=== PATIENT | female | born 1975 | race Two or more races ===

== ENCOUNTER 2023-04-07 05:55 | Inpatient (IN) | payer OTHER ==
[2023-04-02 12:39] LABS: Eosinophils # (auto) 0.1 10 ^3/uL (0-0.8); Monocytes # (auto) 0.6 10 ^3/uL (0-1.3); White Blood Cell 7.6 10^3/uL (4.4-10.8)
[2023-04-02 12:41] LABS: Basophils # (auto) 0 10 ^3/uL (0-0.2); Basophils % (auto) 0.5 % (0.0-2.0); Eosinophils % (auto) 0.8 % (0.0-7.0); Hematocrit 36.9 % (36.0-46.0); Hemoglobin 11.8 g/dL (12.2-16.2); Lymphocytes # (auto) 2.6 10 ^3/uL (0.4-5.4); Lymphocytes % (auto) 33.9 % (10.0-50.0); Mean Corpuscular Hemoglobin 25.6 pg (28.0-32.0); Monocytes % (auto) 8.5 % (0.0-12.0); Neutrophils # (auto) 4.3 10 ^3/uL (1.6-8.6); Neutrophils % (auto) 56.3 % (37.0-80.0); Red Blood Cells 4.61 10^6/uL (4.0-5.20); Red Cell Distribution Width 14.6 % (11.8-14.3)
[2023-04-02 12:51] LABS: INR 0.97 (0.9-1.15); Partial Thromboplastin Time 26.5 SEC (24.5-34.5); Prothrombin Time 10.2 sec (9.3-11.8)
[2023-04-02 13:04] LABS: Urine Bacteria FEW /hpf (None Seen); Urine Blood Negative /uL (Negative); Urine Clarity Clear (Clear); Urine Color Yellow (Yellow); Urine Protein, UAD TRACE (Negative); Urine Specific Gravity 1.016 (1.001-1.035); Urine Urobilinogen Normal (Negative); Urine WBC <1 /hpf (0 - 5)
[2023-04-02 13:22] LABS: Albumin 4.6 g/dL (3.2-4.8); Alkaline Phosphatase 64 U/L (46-116); Anion Gap 5 (5-15); Aspartate Aminotransferase 11 U/L (13-40); BUN/Creatinine Ratio 7.8 (10.0-20.0); Blood Urea Nitrogen 8 mg/dL (9-23); Calcium 9.3 mg/dL (8.7-10.4); Carbon Dioxide 26 mmol/L (20-30); Chloride 105 mmol/L (98-107); Glucose 94 mg/dL (74-106); Potassium 4.5 mmol/L (3.5-5.1); Sodium 136 mmol/L (136-145)
[2023-04-02 13:23] LABS: Bilirubin, Total 0.5 mg/dL (0.2-1.0)
[2023-04-02 13:30] LABS: Alanine Aminotransferase < 9 U/L (7-40)
[~2023-04-07] VITALS: Ht 165.1 cm; Wt 109.8 kg
[2023-04-07] MEDS ORDERED: ceFAZolin 2 GM/D5W100ml 100 ML IV ONE (06:55)
[2023-04-07] MEDS ORDERED: FAMOTIDINE (10MG/ML) 2ML VL IV ONE (06:58)
[2023-04-07] MEDS ORDERED: SUCCINYLCHOLINE CHLORIDE 20 MG/ML 10ML VIAL IV ONE (06:59)
[2023-04-07] MEDS ORDERED: HYDROmorphone HCL 2 MG/ML VL/or syr ONE (07:24)
[2023-04-07] MEDS ORDERED: MIDAZOLAM HCL 2MG/2ML 2ml VIAL (1mg/ml) ONE (07:24)
[2023-04-07] MEDS ORDERED: fentaNYL CITRATE 100 MCG/2 ML VL ONE ×2 (07:24→08:48)
[2023-04-07] MEDS ORDERED: SUGAMMADEX 200mg/2ml Vial (100MG/ML) IV ONE (07:24)
[2023-04-07] MEDS ORDERED: PROPOFOL 10 MG/ML 20 ML IV ONE (07:25)
[2023-04-07] MEDS ORDERED: ePHEDrine SULFATE 50 MG/ML AMP ONE (07:25)
[2023-04-07] MEDS ORDERED: ROCURONIUM 10MG/ML 10ML VIAL IV ONE (07:25)
[2023-04-07] MEDS ORDERED: GLYCOPYRROLATE 0.2 MG/ML 1ML VIAL ONE (07:25)
[2023-04-07] MEDS ORDERED: DexAMETHasone SOD PHOS 10MG/1ML VIAL INJ ONE (07:25)
[2023-04-07] MEDS ORDERED: KETOROLAC TROMETH 30 MG/ML 1ML VIAL ONE (07:25)
[2023-04-07] MEDS ORDERED: LIDOCAINE 2% (LOCAL ANESTH.) PF 5ml SDV ONE (07:25)
[2023-04-07] MEDS ORDERED: LIDOCAINE W/ EPINEPHRINE 2% INJ 20ML VIAL ONE (07:27)
[2023-04-07] MEDS ORDERED: BUPIVACAINE 0.5% P/F INJ 10 ML VIAL ONE (07:27)
[2023-04-07 10:54] VITALS: O2SAT 100
[2023-04-07] MEDS ORDERED: ONDANSETRON HCL 4 MG/2 ML VIAL IV PRN (11:00)
[2023-04-07] MEDS: HYDROmorphone HCL 2 MG/ML VL/or syr IV PRN ×6 (12:02→22:25)
[2023-04-07] MEDS ORDERED: hydrALAZINE HCL 20 MG/ML VL IV PRN (12:15)
[2023-04-07] MEDS ORDERED: ceFAZolin 1GM/50ML 50 ML IV SCH (14:00)
[2023-04-07] MEDS: D5W/SOD CHL 0.45%/KCL 20MEQ 1,000 ML IV SCH ×2 (15:28→18:41)
[2023-04-07] MEDS: metroNIDAZOLE 500MG/100ML 100 ML IV SCH ×2 (15:28→21:57)
[2023-04-07 16:23] VITALS: BP 136/73; PULSE 80; RESP 12
[2023-04-07 17:00] VITALS: BP 136/75; PULSE 89; RESP 18; TEMP 98.1; O2SAT 97
[2023-04-07] MEDS: ONDANSETRON HCL 4 MG/2 ML VIAL IV PRN ×2 (17:18→22:25)
[2023-04-07] MEDS: ceFAZolin 1GM/50ML 50 ML IV SCH (17:19)
[2023-04-07 20:00] VITALS: RESP 20
[2023-04-07 22:00] VITALS: BP 163/81; PULSE 78; RESP 18; TEMP 98.4; O2SAT 96
[2023-04-08] VITALS (7 sets, daily range): BP systolic 154–168; BP diastolic 81–102; PULSE 77–89; RESP 16–85; TEMP 97.6–99.6; O2SAT 93–100
[2023-04-08] MEDS: ceFAZolin 1GM/50ML 50 ML IV SCH ×3 (00:27→18:11)
[2023-04-08] MEDS: ONDANSETRON HCL 4 MG/2 ML VIAL IV PRN ×5 (02:38→22:27)
[2023-04-08] MEDS: D5W/SOD CHL 0.45%/KCL 20MEQ 1,000 ML IV SCH ×4 (03:10→21:35)
[2023-04-08] MEDS: HYDROmorphone HCL 2 MG/ML VL/or syr IV PRN ×5 (04:18→22:27)
[2023-04-08 05:05] LABS: Basophils # (auto) 0 10 ^3/uL (0-0.2); Basophils % (auto) 0.1 % (0.0-2.0); Eosinophils # (auto) 0 10 ^3/uL (0-0.8); Hemoglobin 9.7 g/dL (12.2-16.2); Lymphocytes # (auto) 1.5 10 ^3/uL (0.4-5.4); Monocytes # (auto) 0.9 10 ^3/uL (0-1.3)
[2023-04-08 05:09] LABS: Hematocrit 30.5 % (36.0-46.0); Lymphocytes % (auto) 13.7 % (10.0-50.0); Mean Corpuscular Hemoglobin 25.6 pg (28.0-32.0); Mean Corpuscular Hgb Conc. 31.9 g/dL (32.0-36.0); Mean Corpuscular Volume 80.2 fL (80.0-100.0); Monocytes % (auto) 8.3 % (0.0-12.0); Neutrophils # (auto) 8.7 10 ^3/uL (1.6-8.6); Neutrophils % (auto) 77.9 % (37.0-80.0); Red Blood Cells 3.81 10^6/uL (4.0-5.20); Red Cell Distribution Width 14.6 % (11.8-14.3); White Blood Cell 11.1 10^3/uL (4.4-10.8)
[2023-04-08 05:21] LABS: Alkaline Phosphatase 48 U/L (46-116); Anion Gap 7 (5-15); Blood Urea Nitrogen 6 mg/dL (9-23); Calcium 8.2 mg/dL (8.7-10.4); Carbon Dioxide 23 mmol/L (20-30); Chloride 105 mmol/L (98-107); Glucose 139 mg/dL (74-106); Potassium 3.8 mmol/L (3.5-5.1); Sodium 135 mmol/L (136-145)
[2023-04-08 05:22] LABS: Albumin 3.6 g/dL (3.2-4.8); Aspartate Aminotransferase 14 U/L (13-40); Bilirubin, Total 0.5 mg/dL (0.2-1.0); Total Protein 6.3 g/dL (5.7-8.2)
[2023-04-08 05:37] LABS: Alanine Aminotransferase < 9 U/L (7-40)
[2023-04-08] MEDS: metroNIDAZOLE 500MG/100ML 100 ML IV SCH ×3 (05:55→22:26)
[2023-04-08 07:57] LABS: % Iron Saturation 5.7 % (15-50)
[2023-04-08 08:52] LABS: Hepatitis B Surface Antigen Negative (Negative)
[2023-04-08 09:13] LABS: Hepatitis C Antibody Negative (Negative)
[2023-04-08] MEDS ORDERED: ERGOCALCIFEROL 50,000 UNIT(1.25MG) CAP PO SCH ×2 (10:15→14:30)
[2023-04-08] MEDS ORDERED: IRON SUCROSE COMPLEX 100 ML IV SCH (12:00)
[2023-04-08] MEDS: SODIUM FERR GLUC 125 MG in NS 100 ML IV SCH (12:20)
[2023-04-08] MEDS: PANTOPRAZOLE 40 MG/10 ML VIAL INJ IV SCH (12:38)
[2023-04-08] MEDS ORDERED: CALCIUM GLUC 1,000mg/50ml-NS 50 ML IV ONE (14:30)
[2023-04-08 14:57] LABS: Triglycerides 65 mg/dL (< 150)
[2023-04-08 14:58] LABS: LDL Cholesterol 38 mg/dL (< 100)
[2023-04-08 14:59] LABS: Cholesterol 86 mg/dL (< 200); HDL Cholesterol 40 mg/dL (40-59)
[2023-04-08] MEDS ORDERED: CYANOCOBALAMIN (B-12) 1000 MCG/1 ML VIAL IM ONE (17:30)
[2023-04-08] MEDS: amLODIPine BESYLATE 5 MG TAB PO SCH (18:12)
[2023-04-08] MEDS ORDERED: CYANOCOBALAMIN (B-12) 1000 MCG/1 ML VIAL ONE (18:18)
[2023-04-09] MEDS: ceFAZolin 1GM/50ML 50 ML IV SCH ×3 (00:24→18:02)
[2023-04-09 05:00] VITALS: BP 132/60; PULSE 105; RESP 19; TEMP 99; O2SAT 93
[2023-04-09] MEDS: metroNIDAZOLE 500MG/100ML 100 ML IV SCH ×3 (05:40→21:20)
[2023-04-09] MEDS: ONDANSETRON HCL 4 MG/2 ML VIAL IV PRN (05:49)
[2023-04-09] MEDS: HYDROmorphone HCL 2 MG/ML VL/or syr IV PRN ×3 (05:49→22:27)
[2023-04-09 06:35] LABS: Basophils # (auto) 0 10 ^3/uL (0-0.2); Basophils % (auto) 0.3 % (0.0-2.0); Eosinophils # (auto) 0 10 ^3/uL (0-0.8); Eosinophils % (auto) 0.1 % (0.0-7.0); Hematocrit 31.3 % (36.0-46.0); Lymphocytes # (auto) 1.7 10 ^3/uL (0.4-5.4); Lymphocytes % (auto) 14.5 % (10.0-50.0); Mean Corpuscular Hemoglobin 25.2 pg (28.0-32.0); Mean Corpuscular Hgb Conc. 31.8 g/dL (32.0-36.0); Mean Corpuscular Volume 79.2 fL (80.0-100.0); Monocytes % (auto) 8.1 % (0.0-12.0); Neutrophils # (auto) 9.3 10 ^3/uL (1.6-8.6); Red Blood Cells 3.95 10^6/uL (4.0-5.20); Red Cell Distribution Width 14.8 % (11.8-14.3)
[2023-04-09 06:54] LABS: Albumin 3.7 g/dL (3.2-4.8); Alkaline Phosphatase 51 U/L (46-116); Anion Gap 9 (5-15); Aspartate Aminotransferase 15 U/L (13-40); Calcium 8.2 mg/dL (8.7-10.4); Carbon Dioxide 21 mmol/L (20-30); Chloride 108 mmol/L (98-107); Glucose 117 mg/dL (74-106); Potassium 3.9 mmol/L (3.5-5.1); Sodium 138 mmol/L (136-145); Total Protein 6.4 g/dL (5.7-8.2)
[2023-04-09 07:02] LABS: Alanine Aminotransferase < 9 U/L (7-40); BUN/Creatinine Ratio 5.7 (10.0-20.0); Bilirubin, Total 0.5 mg/dL (0.2-1.0); Blood Urea Nitrogen < 5 mg/dL (9-23)
[2023-04-09 08:43] VITALS: BP 143/81; PULSE 94; RESP 16; TEMP 98; O2SAT 95
[2023-04-09] MEDS ORDERED: CALCIUM GLUC 1,000mg/50ml-NS 50 ML IV ONE (09:00)
[2023-04-09] MEDS: CYANOCOBALAMIN 500 MCG TAB PO SCH (10:00)
[2023-04-09] MEDS: amLODIPine BESYLATE 5 MG TAB PO SCH (10:00)
[2023-04-09] MEDS: PANTOPRAZOLE 40 MG/10 ML VIAL INJ IV SCH (11:08)
[2023-04-09] MEDS: SODIUM FERR GLUC 125 MG in NS 100 ML IV SCH (12:00)
[2023-04-09] MEDS: D5W/SOD CHL 0.45%/KCL 20MEQ 1,000 ML IV SCH ×2 (12:30→20:50)
[2023-04-09 12:31] VITALS: BP 161/89; PULSE 89; RESP 17; TEMP 98.9; O2SAT 97
[2023-04-09] MEDS: CYANOCOBALAMIN (B-12) 1000 MCG/1 ML VIAL IM SCH (13:24)
[2023-04-09 16:41] VITALS: BP 151/83; PULSE 90; RESP 18; TEMP 98.9; O2SAT 96
[2023-04-09 22:00] VITALS: BP 152/82; PULSE 75; RESP 19; TEMP 99.6; O2SAT 97
[2023-04-10] MEDS: ceFAZolin 1GM/50ML 50 ML IV SCH ×3 (01:31→18:00)
[2023-04-10] MEDS: HYDROmorphone HCL 2 MG/ML VL/or syr IV PRN ×4 (03:52→22:03)
[2023-04-10 05:00] VITALS: BP 145/73; PULSE 70; RESP 16; TEMP 98.5; O2SAT 93
[2023-04-10] MEDS: metroNIDAZOLE 500MG/100ML 100 ML IV SCH ×3 (05:37→22:02)
[2023-04-10 06:53] LABS: Basophils # (auto) 0.1 10 ^3/uL (0-0.2); Basophils % (auto) 0.6 % (0.0-2.0); Eosinophils # (auto) 0 10 ^3/uL (0-0.8); Eosinophils % (auto) 0.4 % (0.0-7.0); Hematocrit 31.8 % (36.0-46.0); Hemoglobin 10.1 g/dL (12.2-16.2); Lymphocytes # (auto) 2.1 10 ^3/uL (0.4-5.4); Lymphocytes % (auto) 20.6 % (10.0-50.0); Mean Corpuscular Hemoglobin 25.5 pg (28.0-32.0); Mean Corpuscular Hgb Conc. 31.7 g/dL (32.0-36.0); Mean Corpuscular Volume 80.2 fL (80.0-100.0); Monocytes # (auto) 0.8 10 ^3/uL (0-1.3); Monocytes % (auto) 8.3 % (0.0-12.0); Neutrophils % (auto) 70.1 % (37.0-80.0); Red Blood Cells 3.97 10^6/uL (4.0-5.20)
[2023-04-10 07:55] LABS: Alanine Aminotransferase < 9 U/L (7-40); Albumin 3.5 g/dL (3.2-4.8); Alkaline Phosphatase 48 U/L (46-116); Anion Gap 12 (5-15); Aspartate Aminotransferase 12 U/L (13-40); BUN/Creatinine Ratio 8.8 (10.0-20.0); Bilirubin, Total 0.5 mg/dL (0.2-1.0); Blood Urea Nitrogen 7 mg/dL (9-23); Calcium 8.6 mg/dL (8.5-10.1); Carbon Dioxide 21 mmol/L (20-30); Chloride 108 mmol/L (98-107); Glucose 86 mg/dL (74-106); Potassium 3.9 mmol/L (3.5-5.1); Sodium 141 mmol/L (136-145)
[2023-04-10] MEDS: D5W/SOD CHL 0.45%/KCL 20MEQ 1,000 ML IV SCH ×3 (08:00→21:50)
[2023-04-10] MEDS: CYANOCOBALAMIN 500 MCG TAB PO SCH (08:48)
[2023-04-10] MEDS: CYANOCOBALAMIN (B-12) 1000 MCG/1 ML VIAL IM SCH (08:58)
[2023-04-10] MEDS: PANTOPRAZOLE 40 MG/10 ML VIAL INJ IV SCH (08:58)
[2023-04-10 09:00] VITALS: BP 141/80; PULSE 79; RESP 16; TEMP 98.7; O2SAT 95
[2023-04-10] MEDS: amLODIPine BESYLATE 5 MG TAB PO SCH (09:00)
[2023-04-10] MEDS: SODIUM FERR GLUC 125 MG in NS 100 ML IV SCH (12:00)
[2023-04-10 13:00] VITALS: BP 160/79; PULSE 81; RESP 18; TEMP 97.5; O2SAT 99
[2023-04-10 17:00] VITALS: BP 139/65; PULSE 71; RESP 18; TEMP 98.7; O2SAT 96
[2023-04-10 22:00] VITALS: BP 153/76; PULSE 74; RESP 17; TEMP 99.2; O2SAT 98
[2023-04-11] MEDS: ceFAZolin 1GM/50ML 50 ML IV SCH ×3 (02:00→17:26)
[2023-04-11 05:00] VITALS: BP 156/75; PULSE 64; RESP 18; TEMP 99.2; O2SAT 96
[2023-04-11] MEDS: metroNIDAZOLE 500MG/100ML 100 ML IV SCH ×2 (05:07→13:58)
[2023-04-11] MEDS: HYDROmorphone HCL 2 MG/ML VL/or syr IV PRN ×3 (05:07→23:11)
[2023-04-11 07:11] LABS: Basophils # (auto) 0 10 ^3/uL (0-0.2); Basophils % (auto) 0.5 % (0.0-2.0); Eosinophils # (auto) 0.1 10 ^3/uL (0-0.8); Lymphocytes # (auto) 1.9 10 ^3/uL (0.4-5.4); Monocytes # (auto) 0.8 10 ^3/uL (0-1.3); Nucleated Red Blood Cells % 0.1 %
[2023-04-11 07:13] LABS: Eosinophils % (auto) 1.5 % (0.0-7.0); Hematocrit 30.6 % (36.0-46.0); Hemoglobin 9.8 g/dL (12.2-16.2); Lymphocytes % (auto) 22.8 % (10.0-50.0); Mean Corpuscular Hemoglobin 25.7 pg (28.0-32.0); Mean Corpuscular Hgb Conc. 32.1 g/dL (32.0-36.0); Mean Corpuscular Volume 79.9 fL (80.0-100.0); Monocytes % (auto) 9.4 % (0.0-12.0); Neutrophils # (auto) 5.6 10 ^3/uL (1.6-8.6); Neutrophils % (auto) 65.8 % (37.0-80.0); Red Blood Cells 3.83 10^6/uL (4.0-5.20); Red Cell Distribution Width 14.8 % (11.8-14.3); White Blood Cell 8.5 10^3/uL (4.4-10.8)
[2023-04-11] MEDS: D5W/SOD CHL 0.45%/KCL 20MEQ 1,000 ML IV SCH ×2 (08:00→13:58)
[2023-04-11 08:52] LABS: Alkaline Phosphatase 47 U/L (46-116); Anion Gap 9 (5-15); Aspartate Aminotransferase 11 U/L (13-40); BUN/Creatinine Ratio 7.6 (10.0-20.0); Blood Urea Nitrogen 6 mg/dL (9-23); Calcium 8.5 mg/dL (8.7-10.4); Carbon Dioxide 21 mmol/L (20-30); Chloride 107 mmol/L (98-107); Glucose 90 mg/dL (74-106); Potassium 3.6 mmol/L (3.5-5.1); Sodium 137 mmol/L (136-145)
[2023-04-11 08:53] LABS: Albumin 3.6 g/dL (3.2-4.8)
[2023-04-11 08:54] LABS: Bilirubin, Total 0.5 mg/dL (0.2-1.0); Total Protein 6.3 g/dL (5.7-8.2)
[2023-04-11] MEDS: CYANOCOBALAMIN (B-12) 1000 MCG/1 ML VIAL IM SCH (08:57)
[2023-04-11] MEDS: CYANOCOBALAMIN 500 MCG TAB PO SCH (08:58)
[2023-04-11] MEDS: PANTOPRAZOLE 40 MG/10 ML VIAL INJ IV SCH (08:58)
[2023-04-11] MEDS: amLODIPine BESYLATE 5 MG TAB PO SCH (08:58)
[2023-04-11 09:00] VITALS: BP 158/89; PULSE 68; RESP 18; TEMP 98.3; O2SAT 98
[2023-04-11 09:10] LABS: Alanine Aminotransferase < 9 U/L (7-40)
[2023-04-11] MEDS: SODIUM FERR GLUC 125 MG in NS 100 ML IV SCH (12:00)
[2023-04-11 13:00] VITALS: BP 147/93; PULSE 98; RESP 20; TEMP 98.6; O2SAT 95
[2023-04-11 17:00] VITALS: BP 151/86; PULSE 101; RESP 18; TEMP 98.6; O2SAT 97
[2023-04-11] MEDS ORDERED: CALCIUM GLUC 1,000mg/50ml-NS 50 ML IV ONE (21:45)
[2023-04-11] MEDS ORDERED: ACETAMINOPHEN/CODEINE#3 (300/30mg) TAB PO PRN (21:45)
[2023-04-11] MEDS ORDERED: IBUPROFEN 400 MG TAB PO PRN (21:45)
[2023-04-11 23:08] VITALS: BP 141/73; PULSE 87; RESP 17; TEMP 98.6; O2SAT 99
[2023-04-12] MEDS: ceFAZolin 1GM/50ML 50 ML IV SCH ×2 (01:27→09:15)
[2023-04-12 05:16] VITALS: BP 142/64; PULSE 63; RESP 18; TEMP 98.3; O2SAT 99
[2023-04-12 06:50] LABS: Basophils # (auto) 0 10 ^3/uL (0-0.2); Eosinophils # (auto) 0.2 10 ^3/uL (0-0.8); Hemoglobin 10.3 g/dL (12.2-16.2)
[2023-04-12 06:52] LABS: Basophils % (auto) 0.5 % (0.0-2.0); Eosinophils % (auto) 2.4 % (0.0-7.0); Hematocrit 32.3 % (36.0-46.0); Lymphocytes % (auto) 27.3 % (10.0-50.0); Mean Corpuscular Hemoglobin 25.4 pg (28.0-32.0); Mean Corpuscular Volume 79.3 fL (80.0-100.0); Monocytes # (auto) 0.8 10 ^3/uL (0-1.3); Monocytes % (auto) 10.7 % (0.0-12.0); Neutrophils # (auto) 4.4 10 ^3/uL (1.6-8.6); Neutrophils % (auto) 59.1 % (37.0-80.0); Nucleated Red Blood Cells % 0.1 %; Red Blood Cells 4.07 10^6/uL (4.0-5.20); Red Cell Distribution Width 14.6 % (11.8-14.3); White Blood Cell 7.4 10^3/uL (4.4-10.8)
[2023-04-12 07:03] LABS: Albumin 3.7 g/dL (3.2-4.8); Alkaline Phosphatase 50 U/L (46-116); Anion Gap 8 (5-15); Aspartate Aminotransferase 12 U/L (13-40); BUN/Creatinine Ratio 7.8 (10.0-20.0); Blood Urea Nitrogen 6 mg/dL (9-23); Calcium 9.1 mg/dL (8.5-10.1); Carbon Dioxide 24 mmol/L (20-30); Chloride 107 mmol/L (98-107); Glucose 88 mg/dL (74-106); Potassium 3.5 mmol/L (3.5-5.1); Sodium 139 mmol/L (136-145)
[2023-04-12 07:04] LABS: Bilirubin, Total 0.4 mg/dL (0.2-1.0); Total Protein 6.4 g/dL (5.7-8.2)
[2023-04-12 07:12] LABS: CRP High Sensitivity 3.06 mg/dL (<1.0)
[2023-04-12 07:13] LABS: Alanine Aminotransferase < 9 U/L (7-40)
[2023-04-12 09:00] VITALS: BP 146/93; PULSE 87; RESP 20; TEMP 97.7; O2SAT 98
[2023-04-12] MEDS: CYANOCOBALAMIN 500 MCG TAB PO SCH (09:13)
[2023-04-12] MEDS: amLODIPine BESYLATE 5 MG TAB PO SCH (09:14)
[2023-04-12] MEDS: PANTOPRAZOLE 40 MG/10 ML VIAL INJ IV SCH (09:14)
[2023-04-12] MEDS: CYANOCOBALAMIN (B-12) 1000 MCG/1 ML VIAL IM SCH (09:14)
[2023-04-12] MEDS ORDERED: AML5T PO (10:37)
[2023-04-12] MEDS ORDERED: IBUP1TAB4 PO (10:37)
[2023-04-12] MEDS ORDERED: CYAN500T3 PO (10:37)
[2023-04-12] MEDS ORDERED: FER325T PO (10:37)
[2023-04-12] MEDS ORDERED: ERGO1CAP23 PO (10:37)
[2023-04-12] MEDS: SODIUM FERR GLUC 125 MG in NS 100 ML IV SCH (12:43)
== END 2023-04-12 14:55 | disposition home or self-care (01) | DRG 330 ==
LOC: SUR 05:55 → OVERFLOW 12:07 → WEST WING 15:05
PROVIDERS: ADMIT Internal Medicine; ATTEND Internal Medicine
PROC: 0D1L0Z4 Bypass Transverse Colon to Cutaneous, Open Approach (ICD-10-PCS; 2023-04-07)
PROC: 0DTF0ZZ Resection of Right Large Intestine, Open Approach (ICD-10-PCS; principal; 2023-04-07 08:21)
DX: D12.6 Benign neoplasm of colon, unspecified (principal); D62 Acute posthemorrhagic anemia; E87.1 Hypo-osmolality and hyponatremia; Z68.41 Body mass index [BMI] 40.0-44.9, adult; I10 Essential (primary) hypertension; E83.51 Hypocalcemia; E53.8 Deficiency of other specified B group vitamins; E66.01 Morbid (severe) obesity due to excess calories
CPT/HCPCS: 36415; 71045; 80053; 80061; 81001; 81025; 82306; 82607; 83540; 83550; 84443; 85025; 85610; 85730; 86141; 86803; 86850; 86900; 86901; 87340; 97163; C9113; G0378; J0330; J1100; J1756; J1885; J2001; J2250; J2405; J2704; J3490

== ENCOUNTER → 2023-07-02 | Outpatient (CLI) | payer OTHER ==
[~2023-07-02] MED LIST: AML5T PO; CYAN500T3 PO; ERGO1CAP23 PO; FER325T PO; IBUP1TAB4 PO
== END | disposition home or self-care (01) ==
LOC: LAB 12:00
PROVIDERS: ATTEND Obstetrics & Gynecology
DX: N93.9 Abnormal uterine and vaginal bleeding, unspecified (principal)

== ENCOUNTER 2023-11-05 06:20 | Day surgery (SDC) | payer OTHER ==
[2023-11-02 10:27] LABS: Basophils # (auto) 0.1 10 ^3/uL (0-0.2); Basophils % (auto) 0.8 % (0.0-2.0); Eosinophils # (auto) 0.1 10 ^3/uL (0-0.8); Eosinophils % (auto) 1.1 % (0.0-7.0); Hemoglobin 12.9 g/dL (12.2-16.2); Lymphocytes # (auto) 2.3 10 ^3/uL (0.4-5.4); Mean Corpuscular Hemoglobin 27.5 pg (28.0-32.0); Mean Corpuscular Hgb Conc. 33.1 g/dL (32.0-36.0); Monocytes # (auto) 0.6 10 ^3/uL (0-1.3); Neutrophils # (auto) 3.5 10 ^3/uL (1.6-8.6); Neutrophils % (auto) 54.1 % (37.0-80.0); Nucleated Red Blood Cells % 0.1 %; Red Cell Distribution Width 14.4 % (11.8-14.3); White Blood Cell 6.5 10^3/uL (4.4-10.8)
[2023-11-02 10:28] LABS: Urine Bacteria FEW /hpf (None Seen); Urine Blood Negative /uL (Negative); Urine Clarity Clear (Clear); Urine Color Light-Yellow (Yellow); Urine Protein, UAD TRACE (Negative); Urine Specific Gravity 1.023 (1.001-1.035); Urine Urobilinogen Normal (Negative); Urine WBC 3 /hpf (0 - 5); Urine pH 5.5 (5.0-9.0)
[2023-11-02 10:42] LABS: INR 0.98 (0.9-1.15); Prothrombin Time 10.4 sec (9.3-11.8)
[2023-11-02 11:20] LABS: Alanine Aminotransferase 14 U/L (7-40); Alkaline Phosphatase 65 U/L (46-116); Anion Gap 6 (5-15); BUN/Creatinine Ratio 8.7 (10.0-20.0); Blood Urea Nitrogen 8 mg/dL (9-23); Calcium 9.9 mg/dL (8.7-10.4); Carbon Dioxide 24 mmol/L (20-30); Chloride 107 mmol/L (98-107); Glucose 97 mg/dL (74-106); Sodium 137 mmol/L (136-145)
[2023-11-02 11:21] LABS: Albumin 4.5 g/dL (3.2-4.8); Aspartate Aminotransferase 9 U/L (13-40); Bilirubin, Total 0.7 mg/dL (0.2-1.0); Total Protein 7.9 g/dL (5.7-8.2)
[~2023-11-05] VITALS: Ht 165.1 cm; Wt 96.2 kg
[~2023-11-05 06:20] MED LIST changes: -IBUP1TAB4 PO
[2023-11-05] MEDS ORDERED: ZOFR4T PO (07:18)
[2023-11-05] MEDS ORDERED: HYDR-4902 PO (07:18)
[2023-11-05] MEDS ORDERED: ceFAZolin 2 GM/D5W50ml 50 ML IV ONE (07:27)
[2023-11-05] MEDS ORDERED: LIDOCAINE 1% INJ PF 5ML AMP ONE (07:43)
[2023-11-05] MEDS ORDERED: GLYCOPYRROLATE 0.2 MG/ML 1ML VIAL ONE (07:43)
[2023-11-05] MEDS ORDERED: ONDANSETRON HCL 4 MG/2 ML VIAL ONE (07:43)
[2023-11-05] MEDS ORDERED: PROPOFOL 10 MG/ML 20 ML IV ONE ×3 (07:43→08:57)
[2023-11-05] MEDS ORDERED: DexAMETHasone SOD PHOS 10MG/1ML VIAL INJ ONE (07:43)
[2023-11-05] MEDS ORDERED: KETOROLAC TROMETH 30 MG/ML 1ML VIAL ONE (07:43)
[2023-11-05] MEDS ORDERED: fentaNYL CITRATE 100 MCG/2 ML VL ONE (07:44)
[2023-11-05] MEDS ORDERED: KETAMINE 50mg/ML 1ml syringe ONE (07:44)
[2023-11-05] MEDS: CELECOXIB 100 MG CAP PO ONE (08:00)
[2023-11-05] MEDS: GABAPENTIN 400 MG CAP PO ONE (08:00)
[2023-11-05] MEDS: ACETAMINOPHEN IV 1000 MG/100ML (10MG/ML) IV ONE (08:00)
[2023-11-05] MEDS ORDERED: CELECOXIB 100 MG CAP PO ONE (08:15)
[2023-11-05] MEDS ORDERED: ACETAMINOPHEN IV 1000 MG/100ML (10MG/ML) IV ONE (08:15)
[2023-11-05] MEDS ORDERED: GABAPENTIN 400 MG CAP PO ONE (08:15)
[2023-11-05 09:08] VITALS: PULSE 91; RESP 17; O2SAT 98
[2023-11-05] MEDS ORDERED: HYDROmorphone HCL 2 MG/ML VL/or syr IV PRN (09:15)
[2023-11-05] MEDS ORDERED: ONDANSETRON HCL 4 MG/2 ML VIAL IV PRN ×2 (09:15)
[2023-11-05] MEDS ORDERED: NALOXONE HCL 0.4 MG/ML VIAL IV PRN (09:15)
[2023-11-05] MEDS ORDERED: ePHEDrine SULFATE 50 MG/ML AMP IV PRN (09:15)
[2023-11-05] MEDS ORDERED: LACTATED RINGER'S 1,000 ML IV SCH (09:15)
[2023-11-05] MEDS ORDERED: hydrALAZINE HCL 20 MG/ML VL IV PRN (09:15)
[2023-11-05] MEDS ORDERED: FLUMAZENIL 0.1 MG/ML INJ 10ML MDV IV PRN (09:15)
[2023-11-05] MEDS ORDERED: oxyCODONE HCL 5MG TAB PO PRN (09:15)
[2023-11-05] MEDS ORDERED: fentaNYL CITRATE 100 MCG/2 ML VL IV PRN (09:15)
[2023-11-05] MEDS ORDERED: HYDROmorphone HCL 2 MG/ML VL/or syr ONE (09:33)
[2023-11-05] MEDS: HYDROmorphone HCL 2 MG/ML VL/or syr IV ONE ×2 (09:35→09:45)
[2023-11-05 10:00] VITALS: BP 149/89; PULSE 59; RESP 14; O2SAT 11
== END 2023-11-05 10:17 | disposition home or self-care (01) ==
LOC: SUR 06:20
PROVIDERS: ATTEND Obstetrics & Gynecology
DX: N93.9 Abnormal uterine and vaginal bleeding, unspecified (principal); N92.0 Excessive and frequent menstruation with regular cycle; I10 Essential (primary) hypertension; E66.01 Morbid (severe) obesity due to excess calories; Z68.35 Body mass index [BMI] 35.0-35.9, adult; Z79.899 Other long term (current) drug therapy; Z86.2 Personal history of diseases of the blood and blood-forming organs and certain disorders involving the immune mechanism; Z87.09 Personal history of other diseases of the respiratory system; Z98.890 Other specified postprocedural states; Z84.89 Family history of other specified conditions
CPT/HCPCS: 36415; 58563; 80053; 81001; 81025; 84702; 85025; 85610; 85730; 86850; 86900; 86901; 88305; J0131; J0690; J1100; J1170; J1885; J2405; J2704; J7030

== ENCOUNTER → 2023-12-07 | Outpatient (CLI) | payer OTHER ==
[~2023-12-07] MED LIST changes: +HYDR-4902 PO; +ZOFR4T PO
[2023-12-07 12:10] LABS: Follicle Stimulating Hormone 4.07 IU/L (SEE BELOW)
[2023-12-07 12:11] LABS: Leuteinizing Hormone 3.5 IU/L
== END | disposition home or self-care (01) ==
LOC: LAB 11:22
PROVIDERS: ATTEND Obstetrics & Gynecology
DX: N95.1 Menopausal and female climacteric states (principal)
CPT/HCPCS: 36415; 82670; 83001; 83002; 84403; 84702

== ENCOUNTER → 2024-01-27 | Outpatient (CLI) | payer OTHER ==
[2024-01-27 09:20] LABS: Urine Bacteria FEW /hpf (None Seen); Urine Blood Negative /uL (Negative); Urine Clarity Turbid (Clear); Urine Color Light-Yellow (Yellow); Urine Protein, UAD TRACE (Negative); Urine Specific Gravity 1.018 (1.001-1.035); Urine Urobilinogen Normal (Negative); Urine WBC <1 /hpf (0 - 5); Urine pH 5.5 (5.0-9.0)
[2024-01-27 09:50] LABS: Anion Gap 8 (5-15); Carbon Dioxide 23 mmol/L (20-31); Chloride 108 mmol/L (98-107); Potassium 3.9 mmol/L (3.5-5.1); Sodium 139 mmol/L (136-145)
[2024-01-27 09:51] LABS: Calcium 9.8 mg/dL (8.7-10.4)
[2024-01-27 09:56] LABS: BUN/Creatinine Ratio 11.6 (10.0-20.0); Blood Urea Nitrogen 11 mg/dL (9-23); Glucose 102 mg/dL (74-106)
[2024-01-27 10:33] LABS: % Iron Saturation 40.7 % (15-50)
[2024-01-27 10:40] LABS: Folate (Folic Acid) 14.24 ng/mL (>5.38)
[2024-01-27 10:41] LABS: Ferritin 52.3 ng/mL (10-291)
[2024-01-27 10:46] LABS: Creatinine, Urine 124.95 mg/dL (30.0-125.0)
== END | disposition home or self-care (01) ==
LOC: LAB 08:49
PROVIDERS: ATTEND Internal Medicine
DX: I10 Essential (primary) hypertension (principal); R82.90 Unspecified abnormal findings in urine; R94.4 Abnormal results of kidney function studies; D64.9 Anemia, unspecified
CPT/HCPCS: 36415; 80048; 81001; 82043; 82570; 82607; 82728; 82746; 83540; 83550

== ENCOUNTER → 2024-02-29 | Outpatient (CLI) | payer OTHER ==
[2024-02-29 08:43] LABS: Urine Bacteria None Seen /hpf (None Seen)
[2024-02-29 08:52] LABS: Basophils # (auto) 0 10 ^3/uL (0-0.2); Basophils % (auto) 0.7 % (0.0-2.0); Eosinophils # (auto) 0.1 10 ^3/uL (0-0.8); Eosinophils % (auto) 1.7 % (0.0-7.0); Hematocrit 39.6 % (36.0-46.0); Hemoglobin 13.2 g/dL (12.2-16.2); Lymphocytes # (auto) 2.2 10 ^3/uL (0.4-5.4); Mean Corpuscular Hemoglobin 28.2 pg (28.0-32.0); Mean Corpuscular Hgb Conc. 33.2 g/dL (32.0-36.0); Mean Corpuscular Volume 84.9 fL (80.0-100.0); Monocytes # (auto) 0.6 10 ^3/uL (0-1.3); Monocytes % (auto) 9.8 % (0.0-12.0); Neutrophils # (auto) 3.1 10 ^3/uL (1.6-8.6); Neutrophils % (auto) 50.8 % (37.0-80.0); Nucleated Red Blood Cells % 0.2 %; Platelet Count (auto) 253 10^3/uL (140-450); Red Blood Cells 4.67 10^6/uL (4.0-5.20)
[2024-02-29 08:53] LABS: Urine Blood Negative /uL (Negative); Urine Clarity Clear (Clear); Urine Color Light-Yellow (Yellow); Urine Mucus FEW (None Seen); Urine Protein, UAD TRACE (Negative); Urine Specific Gravity 1.021 (1.001-1.035); Urine Urobilinogen Normal (Negative); Urine WBC 1 /hpf (0 - 5); Urine pH 5.5 (5.0-9.0)
[2024-02-29 09:04] LABS: Chloride 108 mmol/L (98-107); Potassium 4.3 mmol/L (3.5-5.1); Sodium 139 mmol/L (136-145)
[2024-02-29 09:05] LABS: Anion Gap 4 (5-15); Calcium 9.6 mg/dL (8.7-10.4); Carbon Dioxide 27 mmol/L (20-31)
[2024-02-29 09:10] LABS: BUN/Creatinine Ratio 10.2 (10.0-20.0); Blood Urea Nitrogen 9 mg/dL (9-23); Glucose 106 mg/dL (74-106)
== END | disposition home or self-care (01) ==
LOC: LAB 08:10
PROVIDERS: ATTEND Internal Medicine
DX: I12.9 Hypertensive chronic kidney disease with stage 1 through stage 4 chronic kidney disease, or unspecified chronic kidney disease (principal); N18.9 Chronic kidney disease, unspecified; E55.9 Vitamin D deficiency, unspecified; R80.9 Proteinuria, unspecified; D50.9 Iron deficiency anemia, unspecified
CPT/HCPCS: 36415; 80048; 81001; 82306; 85025; 86803

== ENCOUNTER → 2024-12-05 | Outpatient (CLI) | payer OTHER ==
[2024-12-05 15:02] LABS: Hematocrit 40.1 % (36.0-46.0); Hemoglobin 13.3 g/dL (12.2-16.2); Mean Corpuscular Hemoglobin 28.4 pg (28.0-32.0); Mean Corpuscular Volume 85.7 fL (80.0-100.0); Nucleated Red Blood Cells % 0.1 %
[2024-12-05 15:27] LABS: Alanine Aminotransferase 13 U/L (7-40); Albumin 4.6 g/dL (3.2-4.8); Alkaline Phosphatase 54 U/L (46-116); Anion Gap 9 (5-15); BUN/Creatinine Ratio 6.1 (10.0-20.0); Bilirubin, Total 0.5 mg/dL (0.2-1.0); Calcium 9.5 mg/dL (8.7-10.4); Carbon Dioxide 26 mmol/L (20-31); Chloride 107 mmol/L (98-107); Glucose 85 mg/dL (74-106); Potassium 3.9 mmol/L (3.5-5.1); Sodium 142 mmol/L (136-145); Total Protein 7.6 g/dL (5.7-8.2)
[2024-12-05 15:29] LABS: Follicle Stimulating Hormone 44.85 IU/L (SEE BELOW); Free T3 3.25 pg/mL (2.3-4.2); Free T4 (Free Thyroxine) 1.12 ng/dL (0.89-1.76)
[2024-12-05 15:30] LABS: Thyroid Stimulating Hormone 1.45 uIU/mL (0.55-4.78)
[2024-12-05 15:33] LABS: Blood Urea Nitrogen 6 mg/dL (9-23)
[2024-12-05 15:39] LABS: Beta HCG, Quantitative 0.7 mIU/mL (1.5-4.2)
== END | disposition home or self-care (01) ==
LOC: LAB 14:10
PROVIDERS: ATTEND Obstetrics & Gynecology
DX: N95.9 Unspecified menopausal and perimenopausal disorder (principal)
CPT/HCPCS: 36415; 80053; 82626; 82670; 82672; 83001; 83002; 83036; 84144; 84146; 84403; 84439; 84443; 84481; 84702; 85025

== ENCOUNTER 2024-12-25 08:21 | Outpatient (CLI) | payer OTHER ==
[2024-12-25 09:20] LABS: Anion Gap 8 (5-15); Carbon Dioxide 26 mmol/L (20-31); Potassium 4.0 mmol/L (3.5-5.1); Sodium 141 mmol/L (136-145)
[2024-12-25 09:21] LABS: Calcium 9.2 mg/dL (8.7-10.4)
[2024-12-25 09:27] LABS: BUN/Creatinine Ratio 8.3 (10.0-20.0); Glucose 93 mg/dL (74-106)
[2024-12-25 09:30] LABS: Blood Urea Nitrogen 8 mg/dL (9-23); Chloride 107 mmol/L (98-107)
== END 2024-12-25 17:00 | disposition home or self-care (01) ==
LOC: LAB 08:21
PROVIDERS: ATTEND Internal Medicine
DX: I12.9 Hypertensive chronic kidney disease with stage 1 through stage 4 chronic kidney disease, or unspecified chronic kidney disease (principal); N18.2 Chronic kidney disease, stage 2 (mild)
CPT/HCPCS: 36415; 80048